=== PATIENT | female | born 1980 | race American Indian/Alaskan Native ===

== ENCOUNTER 2018-07-08 18:31 | Emergency (ER) | payer SELFPAY ==
[2018-07-08 18:41] VITALS: BP 138/86
--- NOTE | 2018-07-08 20:24 | Emergency Department Report ---
- General Chief complaint: Skin/Abscess/Foreign Body Stated complaint: RT BREAST ABCESS/RUPTURE Time Seen by Provider: 07/08/18 20:24 Source: patient Mode of arrival: Ambulatory Limitations: No Limitations - History of Present Illness Initial comments: 87-year-old -Portuguese presents to fast-track for swelling to the right breast times a few days. Patient reports that she felt a burst at that site and describes having bloody purulent discharge with a foul odor. Patient reports her pain is 9 out of 10 on a scale of 0 out of 10 pain. Patient reports she has a past medical history of right breast infection when reviewing old charts May 2017. She denies any fever or chills is admitted to little nausea but no vomiting. MD complaint: abscess/boil -: days(s) (3) Severity scale (0 -10): 9 Quality: aching, sharp Consistency: constant Improves with: none Worsens with: none Associated symptoms: nausea Treatments Prior to Arrival: none - Related Data Home Medications Medication Instructions Recorded Confirmed Last Taken Lisinopril/Hydrochlorothiazide 1 tab PO QDAY 05/14/17 05/14/17 05/10/17 [Zestoretic 20-12.5 mg] Previous Rx's Medication Instructions Recorded Last Taken Type Miconazole [Monistat Vag Suppos] 100 mg VG QHS #7 supp.vag 05/15/17 Unknown Rx Neomycin/Bacitracin/Polymyxinb 14.2 gm TP BID #1 oint...g. 05/15/17 Unknown Rx [Neosporin Antibiotic Ointment] Ibuprofen [Motrin 800 MG tab] 800 mg PO Q8HR PRN #30 tablet 07/08/18 Unknown Rx cephALEXin [Keflex] 500 mg PO Q8HR #30 cap 07/08/18 Unknown Rx Allergies Allergy/AdvReac Type Severity Reaction Status Date / Time acetaminophen [From Lortab] Allergy Itching Verified 05/14/17 13:09 doxycycline Allergy Itching Verified 05/14/17 13:09 hydrocodone bitartrate Allergy Itching Verified 05/14/17 13:09 [From Lortab] morphine Allergy ITCHING Verified 07/01/15 11:36 /HALLUCINATIONS oxycodone HCl [From Percocet] Allergy Itching Verified 07/01/15 11:36 tramadol Allergy Itching Verified 07/01/15 11:36 vancomycin Allergy Rash Verified 05/14/17 13:10 Burning Itching Abscess Boil HPI - HPI Chief Complaint: Skin/Abscess/Foreign Body Stated Complaint: RT BREAST ABCESS/RUPTURE Time Seen by Provider: 07/08/18 20:24 Home Medications: Home Medications Medication Instructions Recorded Confirmed Last Taken Lisinopril/Hydrochlorothiazide 1 tab PO QDAY 05/14/17 05/14/17 05/10/17 [Zestoretic 20-12.5 mg] Previous Rx's Medication Instructions Recorded Last Taken Type Miconazole [Monistat Vag Suppos] 100 mg VG QHS #7 supp.vag 05/15/17 Unknown Rx Neomycin/Bacitracin/Polymyxinb 14.2 gm TP BID #1 oint...g. 05/15/17 Unknown Rx [Neosporin Antibiotic Ointment] Ibuprofen [Motrin 800 MG tab] 800 mg PO Q8HR PRN #30 tablet 07/08/18 Unknown Rx cephALEXin [Keflex] 500 mg PO Q8HR #30 cap 07/08/18 Unknown Rx Allergies/Adverse Reactions: Allergies Allergy/AdvReac Type Severity Reaction Status Date / Time acetaminophen [From Lortab] Allergy Itching Verified 05/14/17 13:09 doxycycline Allergy Itching Verified 05/14/17 13:09 hydrocodone bitartrate Allergy Itching Verified 05/14/17 13:09 [From Lortab] morphine Allergy ITCHING Verified 07/01/15 11:36 /HALLUCINATIONS oxycodone HCl [From Percocet] Allergy Itching Verified 07/01/15 11:36 tramadol Allergy Itching Verified 07/01/15 11:36 vancomycin Allergy Rash Verified 05/14/17 13:10 Burning Itching ED Review of Systems ROS: Stated complaint: RT BREAST ABCESS/RUPTURE Other details as noted in HPI Comment: All other systems reviewed and negative Skin: other (right breast pain and drainage) ED Past Medical Hx - Past Medical History Previous Medical History?: Yes Hx Hypertension: Yes (takes lisinopril, has not been given meds while in the hospital) Hx Congestive Heart Failure: No Hx Diabetes: No Hx Pulmonary Embolism: Yes Hx Asthma: No Hx COPD: No Hx HIV: No Additional medical history: BLOOD CLOT RIGHT ARM - Surgical History Past Surgical History?: Yes Hx Breast Surgery: Yes Additional Surgical History: Hysterectomy 05/17/15. C section x3 - Social History Smoking Status: Never Smoker Substance Use Type: Alcohol - Medications Home Medications: Home Medications Medication Instructions Recorded Confirmed Last Taken Type Lisinopril/Hydrochlorothiazide 1 tab PO QDAY 05/14/17 05/14/17 05/10/17 History [Zestoretic 20-12.5 mg] Miconazole [Monistat Vag Suppos] 100 mg VG QHS #7 supp.vag 05/15/17 Unknown Rx Neomycin/Bacitracin/Polymyxinb 14.2 gm TP BID #1 oint...g. 05/15/17 Unknown Rx [Neosporin Antibiotic Ointment] Ibuprofen [Motrin 800 MG tab] 800 mg PO Q8HR PRN #30 tablet 07/08/18 Unknown Rx cephALEXin [Keflex] 500 mg PO Q8HR #30 cap 07/08/18 Unknown Rx ED Physical Exam - General Limitations: No Limitations General appearance: alert, in no apparent distress - Head Head exam: Present: atraumatic, normocephalic - Eye Eye exam: Present: EOMI - ENT ENT exam: Present: mucous membranes moist - Neck Neck exam: Present: normal inspection - Respiratory Respiratory exam: Present: normal lung sounds bilaterally. Absent: respiratory distress - Cardiovascular Cardiovascular Exam: Present: regular rate, normal rhythm. Absent: systolic murmur, diastolic murmur, rubs, gallop - Back Exam Back exam: Present: normal inspection, full ROM - Neurological Exam Neurological exam: Present: alert, oriented X3 - Psychiatric Psychiatric exam: Present: normal affect, normal mood - Expanded Skin Exam Expanded Type of lesion: Present: abscess Description of rash: Present: tenderness ED Course Vital Signs 07/08/18 07/08/18 18:35 21:00 Temperature 98.5 F Pulse Rate 96 H Respiratory 18 20 Rate Blood Pressure 138/86 O2 Sat by Pulse 99 Oximetry ED Medical Decision Making - Medical Decision Making Patient has been evaluated by this provider in fast track as well as . Discussed patient will place her on antibiotics and pain medication. Discussed the patient that she needs to follow up with her breast specialist. Discussed the patient she needs to follow back up with us on Thursday to reevaluate. She verbalized understanding. Critical care attestation.: If time is entered above; I have spent that time in minutes in the direct care of this critically ill patient, excluding procedure time. ED Disposition Clinical Impression: Breast abscess, Breast pain, right Disposition: DC- TO HOME OR SELFCARE Is pt being admited?: No Does the pt Need Aspirin: No Condition: Stable Instructions: Chest Pain (ED) Additional Instructions: Please complete antibiotics as prescribed. Pain medication as needed. It is very important for him to follow up with a breast specialist. I have listed one below for your convenience. We will likely to return back to the emergency room on Thursday for reevaluation. Prescriptions: cephALEXin [Keflex] 500 mg PO Q8HR #30 cap Ibuprofen [Motrin 800 MG tab] 800 mg PO Q8HR PRN #30 tablet PRN Reason: Pain , Severe (7-10) Referrals: PRIMARY CAREMD [Primary Care Provider] - 3-5 Days SUE LOZADA MD [Staff Physician] - 3-5 Days Forms: Work/School Release Form(ED)
[2018-07-08] MEDS ORDERED: TORADOL IM ONE (20:47)
[2018-07-08] MEDS ORDERED: CLEOCIN IM ONE (20:47)
[2018-07-08] MEDS ORDERED: BENADRYL IM ONE (21:08)
[2018-07-08] MEDS ORDERED: BENADRYL ONE (21:09)
--- NOTE | 2018-07-08 21:13 | Emergency Department Report ---
Blank Doc - Documentation Documentation: examined patient with lady midlevel at bedside and male intern architect in room with patient's permission. Patient is tender at 6 o'clock on areola, small opening there about 0.5 cm seem to be where the abscess had drained, no new palpable abscess, mid surrounding erythema, no area that appeared drainable. recommend po antibitics at home and f/u. patient is afebrile. breast symetrical.
== END 2018-07-08 22:09 | disposition home or self-care (01) ==
LOC: ED 18:31
DX: N61.1 Abscess of the breast and nipple (principal); I10 Essential (primary) hypertension; I26.99 Other pulmonary embolism without acute cor pulmonale; Z98.51 Tubal ligation status; Z88.6 Allergy status to analgesic agent; Z88.1 Allergy status to other antibiotic agents; Z88.5 Allergy status to narcotic agent; Z88.8 Allergy status to other drugs, medicaments and biological substances
CPT/HCPCS: 96372; 99282; J1200; J1885

== ENCOUNTER 2019-08-06 17:38 | Emergency (ER) | payer MEDICAID ==
--- NOTE | 2019-08-06 18:06 | Event Note ---
ED Screening Note Date of service: 08/06/19 Time: 18:01 ED Screening Note: This is a 38 y.o. F. that presents to the ER with RLE swelling and pain for 1 week. Reports worsening pain for 3 days. PMH of bilateral PE and HTN Patient had a XR of tib/fib Thursday and told to follow up in ER if worsening symptoms. Denies chest pain, SOB, weakness, This initial assessment/diagnostic orders/clinical plan/treatment(s) is/are subject to change based on patients health status, clinical progression and re- assessment by fellow clinical providers in the ED. Further treatment and workup at subsequent clinical providers discretion. Patient/guardian urged not to elope from the ED as their condition may be serious if not clinically assessed and managed. Initial orders include: doppler and labs
--- NOTE | 2019-08-06 19:35 | Vascular Lab Report ---
DUPLEX DOPPLER LOWER EXTREMITY VEINS, RIGHT INDICATION: RLE swelling and pain, r/o DVT. TECHNIQUE: Duplex doppler imaging was performed through the veins of the right lower extremity using venous comp ression and other maneuvers. COMPARISON: No relevant prior imaging study available. FINDINGS: Right Common femoral vein: Negative. Right Superficial femoral vein: Negative. Right Popliteal vein: Negative. Right Calf veins: Negative. Additional findings: There is a pocket of fluid which is labeled "superior to the right knee." This f luid measures 4.8 x 0.9 x 3.7 cm and appears relatively simple with no surrounding hyperemia to sugge st inflammation. IMPRESSION: 1. No sonographic evidence for DVT in the right lower extremity. 2. Fluid as outlined above. Correlate with exam findings. Signer Name: Gregg Arias MD Signed: 08/06/2019 7:31 PM Workstation Name: [id number]
[2019-08-06] MEDS ORDERED: KETOROLAC 30 MG/1 ML INJ IM ONE (20:58)
[2019-08-06] MEDS ORDERED: predniSONE 50 MG TAB PO ONE (20:58)
[2019-08-06 21:01] VITALS: BP 140/112
--- NOTE | 2019-08-06 21:45 | XRay Report ---
Right knee-4 views INDICATION: RT KNEE PAIN. COMPARISON: None. IMPRESSION: No acute osseous or soft tissue abnormality. Mild tricompartmental DJD. Signer Name: Gregg Arias MD Signed: 08/06/2019 9:41 PM Workstation Name: [id number]
--- NOTE | 2019-08-06 22:32 | Emergency Department Report ---
ED Extremity Problem HPI - General Chief complaint: Extremity Problem,Nontraumatic Stated complaint: SWOLLEN LEG/PAIN AFTER SURGERY Time Seen by Provider: 08/06/19 18:00 Source: patient Mode of arrival: Ambulatory Limitations: No Limitations - History of Present Illness Initial comments: Patient is a 38-year-old -[place] female with a history of hypertension who presents to the ED with complaint of acute onset persistent nontraumatic right knee pain and swelling for the last 1 week, worse in the last 3 days. Patient states that she was initially evaluated at urgent care clinic 3 days ago and given a prescription for pain medications. Patient has been taking ibuprofen with no relief. Patient states that in the last 2 days the swelling and the pain have worsened and she decided to come to the ED for evaluation. Patient denies chest pain, shortness of breath, fever, chills, nausea, vomiting, numbness and tingling or weakness of lower extremities bilaterally, dizziness, abdominal pain, hematuria, fall, traumatic injury, heavy lifting or low back pain. Patient also had a recent liposuction procedure of her abdominal serpiginous front transferred to her breast bilaterally over one month ago. Patient states that she has not had any competitions from this procedure. MD Complaint: extremity pain (right knee pain), extremity swelling (right knee), joint swelling (right knee), joint paint (right knee) -: Sudden, week(s) (1) Location: right, lower extremity, knee History of Same: No -: Yes arthralgia, No fever, No associated dyspnea, No associated chest pain Radiation: none Severity scale (0 -10): 6 Quality: aching, sharp, constant Consistency: constant Improves with: nothing Worsens with: weight bearing, walking, exertion, palpation Associated Symptoms: arthralgias. denies: denies other symptoms, chest pain, shortness of breath, fever, myalgias - Related Data Home Medications Medication Instructions Recorded Confirmed Last Taken Lisinopril/Hydrochlorothiazide 1 tab PO QDAY 05/14/17 05/14/17 05/10/17 [Zestoretic 20-12.5 mg] Previous Rx's Medication Instructions Recorded Last Taken Type Miconazole [Monistat Vag Suppos] 100 mg VG QHS #7 supp.vag 05/15/17 Unknown Rx Neomycin/Bacitracin/Polymyxinb 14.2 gm TP BID #1 oint...g. 05/15/17 Unknown Rx [Neosporin Antibiotic Ointment] Ibuprofen [Motrin 800 MG tab] 800 mg PO Q8HR PRN #30 tablet 07/08/18 Unknown Rx cephALEXin [Keflex] 500 mg PO Q8HR #30 cap 07/08/18 Unknown Rx Methocarbamol [Robaxin] 500 mg PO Q8H PRN #21 tablet 08/06/19 Unknown Rx Naproxen 500 mg PO Q12H PRN #24 tablet 08/06/19 Unknown Rx predniSONE [Deltasone] 40 mg PO QDAY #10 tab 08/06/19 Unknown Rx Allergies Allergy/AdvReac Type Severity Reaction Status Date / Time acetaminophen [From Lortab] Allergy Itching Verified 05/14/17 13:09 doxycycline Allergy Itching Verified 05/14/17 13:09 hydrocodone bitartrate Allergy Itching Verified 05/14/17 13:09 [From Lortab] morphine Allergy ITCHING Verified 07/01/15 11:36 /HALLUCINATIONS oxycodone HCl [From Percocet] Allergy Itching Verified 07/01/15 11:36 tramadol Allergy Itching Verified 07/01/15 11:36 vancomycin Allergy Rash Verified 05/14/17 13:10 Burning Itching ED Review of Systems ROS: Stated complaint: SWOLLEN LEG/PAIN AFTER SURGERY Other details as noted in HPI Constitutional: denies: chills, fever Eyes: denies: eye pain, eye discharge, vision change ENT: denies: ear pain, throat pain Respiratory: denies: cough, shortness of breath, wheezing Cardiovascular: denies: chest pain, palpitations Endocrine: no symptoms reported Gastrointestinal: denies: abdominal pain, nausea, diarrhea Genitourinary: denies: urgency, dysuria, discharge Musculoskeletal: joint swelling (right knee), arthralgia (right knee). denies: back pain Skin: denies: rash, lesions Neurological: denies: headache, weakness, paresthesias Psychiatric: denies: anxiety, depression Hematological/Lymphatic: denies: easy bleeding, easy bruising ED Past Medical Hx - Past Medical History Hx Hypertension: Yes (takes lisinopril, has not been given meds while in the [facility]) Hx Congestive Heart Failure: No Hx Diabetes: No Hx Pulmonary Embolism: Yes Hx Asthma: No Hx COPD: No Hx HIV: No Additional medical history: BLOOD CLOT RIGHT ARM - Surgical History Past Surgical History?: Yes Hx Breast Surgery: Yes Additional Surgical History: Hysterectomy 05/17/15. C section x3 - Social History Smoking Status: Never Smoker Substance Use Type: Alcohol - Medications Home Medications: Home Medications Medication Instructions Recorded Confirmed Last Taken Type Lisinopril/Hydrochlorothiazide 1 tab PO QDAY 05/14/17 05/14/17 05/10/17 History [Zestoretic 20-12.5 mg] Miconazole [Monistat Vag Suppos] 100 mg VG QHS #7 supp.vag 05/15/17 Unknown Rx Neomycin/Bacitracin/Polymyxinb 14.2 gm TP BID #1 oint...g. 05/15/17 Unknown Rx [Neosporin Antibiotic Ointment] Ibuprofen [Motrin 800 MG tab] 800 mg PO Q8HR PRN #30 tablet 07/08/18 Unknown Rx cephALEXin [Keflex] 500 mg PO Q8HR #30 cap 07/08/18 Unknown Rx Methocarbamol [Robaxin] 500 mg PO Q8H PRN #21 tablet 08/06/19 Unknown Rx Naproxen 500 mg PO Q12H PRN #24 tablet 08/06/19 Unknown Rx predniSONE [Deltasone] 40 mg PO QDAY #10 tab 08/06/19 Unknown Rx ED Physical Exam - General Limitations: No Limitations General appearance: alert, in no apparent distress - Head Head exam: Present: atraumatic, normocephalic, normal inspection - Eye Eye exam: Present: normal appearance, PERRL, EOMI Pupils: Present: normal accommodation - ENT ENT exam: Present: normal exam, normal orophraynx, mucous membranes moist, TM's normal bilaterally, normal external ear exam - Neck Neck exam: Present: normal inspection, full ROM - Respiratory Respiratory exam: Present: normal lung sounds bilaterally. Absent: respiratory distress, wheezes, rales, rhonchi, chest wall tenderness, accessory muscle use - Cardiovascular Cardiovascular Exam: Present: normal rhythm, tachycardia, normal heart sounds. Absent: systolic murmur, diastolic murmur, rubs, gallop - GI/Abdominal GI/Abdominal exam: Present: soft, normal bowel sounds. Absent: tenderness, g uarding, rebound, hyperactive bowel sounds, organomegaly - Extremities Exam Extremities exam: Present: normal inspection, tenderness (palpable right knee swelling with tenderness), normal capillary refill, joint swelling (Right knee joint swelling). Absent: full ROM (limited range of motion due to pain) - Back Exam Back exam: Present: normal inspection, full ROM. Absent: tenderness, muscle spasm, paraspinal tenderness - Neurological Exam Neurological exam: Present: alert, oriented X3, CN II-XII intact, normal gait, reflexes normal - Psychiatric Psychiatric exam: Present: normal affect, normal mood - Skin Skin exam: Present: warm, dry, intact, normal color. Absent: rash ED Course Vital Signs 08/06/19 08/06/19 18:00 21:00 Temperature 98.6 F Pulse Rate 104 H 90 Respiratory 16 19 Rate Blood Pressure 140/97 140/112 [Left] O2 Sat by Pulse 96 99 Oximetry - Reevaluation(s) Reevaluation #1: 08/06/19 22:44 This is a 38 yo AA female who presented to the ED with c/o acute onset persistent nontraumatic right knee pain with swelling x 1 week. In the ED, patient is alert and oriented x 3 and is in no acute distress. Right knee x- rays shows no acute fractures or subluxations but degenerative joint disease. Right lower leg Doppler ultrasound shows no evidence of DVT. Patient was treated for pain in the ED and on reevaluation, patient's pain is well- controlled medications. Patient requested prescriptions be given to her that were given to her in the ED upon discharge because her pain has significantly improved. Patient was advised to follow-up with her primary care physician in 7-10 days for reevaluation or return to the ED immediately if symptoms get worse. ED Medical Decision Making - Radiology Data Radiology results: report reviewed, image reviewed Findings [address] [address] XRay Report Signed Patient: RANDALL CHOI MR#: [id number] : 1980 Acct:[id number] Age/Sex: 38 / F ADM Date: 08/06/19 Loc: ED Attending Dr: Ordering Physician: BREEZY POSADAS Date of Service: 08/06/19 Procedure(s): XR knee 3V RT Accession Number(s): [id number] cc: BREEZY POSADAS Fluoro Time In Minutes: Right knee-4 views INDICATION: RT KNEE PAIN. COMPARISON: None. IMPRESSION: No acute osseous or soft tissue abnormality. Mild tricompartmental DJD. Signer Name: Gregg Arias MD Signed: 08/06/2019 9:41 PM Workstation Name: [id number] Transcribed By: PALMER Dictated By: Gregg Arias MD Electronically Authenticated By: Gregg Arias MD Signed Date/Time: 08/06/192140 DD/ 40 TD/TT: Findings [facility] [address] [place] [address] Vascular Lab Report Signed Patient: RANDALL CHOI MR#: [id number] : 1980 Acct:[id number] Age/Sex: 38 / F ADM Date: 08/06/19 Loc: ED Attending Dr: Ordering Physician: POLA CRAWFORD Date of Service: 08/06/19 Procedure(s): VL venous duplex LE RT Accession Number(s): [id number] cc: POLA CRAWFORD DUPLEX DOPPLER LOWER EXTREMITY VEINS, RIGHT INDICATION: RLE swelling and pain, r/o DVT. TECHNIQUE: Duplex doppler imaging was performed through the veins of the right lower extremity using venous compression and other maneuvers. COMPARISON: No relevant prior imaging study available. FINDINGS: Right Common femoral vein: Negative. Right Superficial femoral vein: Negative. Right Popliteal vein: Negative. Right Calf veins: Negative. Additional findings: There is a pocket of fluid which is labeled "superior to the right knee." This fluid measures 4.8 x 0.9 x 3.7 cm and appears relatively simple with no surrounding hyperemia to suggest inflammation. IMPRESSION: 1. No sonographic evidence for DVT in the right lower extremity. 2. Fluid as outlined above. Correlate with exam findings. Signer Name: Gregg Arias MD Signed: 08/06/2019 7:31 PM Workstation Name: [id number] Transcribed By: PALMER Dictated By: Gregg Arias MD Electronically Authenticated By: Gregg Arias MD Signed Date/Time: 08/06/191930 DD/ 28 TD/TT: - Medical Decision Making This is a 38 yo AA female who presented to the ED with c/o acute onset persistent nontraumatic right knee pain with swelling x 1 week. In the ED, patient is alert and oriented x 3 and is in no acute distress. Right knee x- rays shows no acute fractures or subluxations but degenerative joint disease. Right lower leg Doppler ultrasound shows no evidence of DVT. Patient was treated for pain in the ED and on reevaluation, patient's pain is well-c ontrolled medications. Patient requested prescriptions be given to her that were given to her in the ED upon discharge because her pain has significantly improved. Patient was advised to follow-up with her primary care physician in 7-10 days for reevaluation or return to the ED immediately if symptoms get worse. - Differential Diagnosis DJD; Knee muscle strain; DVT Critical care attestation.: If time is entered above; I have spent that time in minutes in the direct care of this critically ill patient, excluding procedure time. ED Disposition Clinical Impression: Degenerative joint disease of right knee Qualifiers: Osteoarthritis type: primary Qualified Code(s): M17.11 - Unilateral primary osteoarthritis, right knee Muscle strain of right knee Qualifiers: Encounter type: initial encounter Qualified Code(s): S86.911A - Strain of unspecified muscle(s) and tendon(s) at lower leg level, right leg, initial encounter Disposition: - TO HOME OR SELFCARE Is pt being admited?: No Does the pt Need Aspirin: No Condition: Stable Instructions: Muscle Strain (ED), Osteoarthritis (ED) Additional Instructions: Take medication with food, drink plenty of fluids and follow-up with your primary care physician in 7-10 days for reevaluation. Return to the ED immediately if symptoms get worse. Prescriptions: predniSONE [Deltasone] 40 mg PO QDAY #10 tab Naproxen 500 mg PO Q12H PRN #24 tablet PRN Reason: Pain , Severe (7-10) Methocarbamol [Robaxin] 500 mg PO Q8H PRN #21 tablet PRN Reason: Muscle Spasm Referrals: [facility] [Outside] - 3-5 Days Time of Disposition: 22:33 Print Language: SAMOAN
== END 2019-08-06 22:50 | disposition home or self-care (01) ==
LOC: ED 17:38
DX: S86.911A Strain of unspecified muscle(s) and tendon(s) at lower leg level, right leg, initial encounter (principal); M17.11 Unilateral primary osteoarthritis, right knee; I10 Essential (primary) hypertension; Z86.711 Personal history of pulmonary embolism; Z98.890 Other specified postprocedural states; Z90.710 Acquired absence of both cervix and uterus; Z79.899 Other long term (current) drug therapy; Z88.8 Allergy status to other drugs, medicaments and biological substances; X58.XXXA Exposure to other specified factors, initial encounter; Y93.89 Activity, other specified; Y92.89 Other specified places as the place of occurrence of the external cause; Y99.8 Other external cause status
CPT/HCPCS: 73562; 93971; 99284; J1885; J7512